=== PATIENT | female | born 1990 | race Caucasian/White ===

== ENCOUNTER 2018-09-03 11:37 | Emergency (ER) | payer OTHER ==
[2018-09-03] MEDS: KETOROLAC 60 MG INJ IM (12:36)
== END 2018-09-03 14:00 | disposition home or self-care (01) ==
LOC: FTE 11:37
DX: M25.522 Pain in left elbow (principal); M79.644 Pain in right finger(s)
CPT/HCPCS: 29130; 73080-LT; 73140; 81025; 96372; 99284-25